=== PATIENT | male | born 1980 | race Caucasian/White ===

== ENCOUNTER → 2025-01-16 | Outpatient (CLI) | payer OTHER, SELFPAY ==
--- NOTE | 2025-01-16 13:33 | RAD_ITS ---
PROCEDURE: CHEST PA AND LATERAL 01/16/2025 REASON FOR EXAM: SOB TECHNIQUE: CHEST PA AND LATERAL COMPARISON: None. RAD/Chest PA and Lateral IMPRESSION: Lungs appear clear throughout. No pleural effusion or pneumothorax is noted. The cardiomediastinal silhouette is within the normal range. No acute osseous changes evident. Negative examination. Reading Location: [place] [id number]
== END | disposition home or self-care (01) ==
PROVIDERS: Referring Provider Chiropractor; Visit Provider Chiropractor
DX: R06.02 Shortness of breath (principal)
CPT/HCPCS: 71046; 94060; 94726; 94729